=== PATIENT | female | born 2000 | race Caucasian/White ===

== ENCOUNTER 2019-09-20 23:08 | Emergency (ER) | payer OTHER, SELFPAY ==
[2019-09-20 23:19] VITALS: BP 136/89; PULSE 100; RESP 15; TEMP 36.8; O2SAT 99; BMI 26.5
--- NOTE | 2019-09-20 23:22 | ED_ITS ---
HPI - General Adult General Chief complaint: Urogenital-Female Stated complaint: severe UTI Time Seen by Provider: 09/20/19 23:20 Source: patient Mode of arrival: Ambulatory Limitations: no limitations History of Present Illness HPI narrative: 18-year-old female. Is in her 2nd trimester. This morning started having dysuria and burning and itching in frequency. No abdominal tenderness or loss of fluid or vaginal bleeding. States she threw up 1 time this morning after she took a AZO tablet. Went to her primary doctor today who apparently was going to put her on Keflex however for some reason that prescription to not get transmitted to the pharmacy. She comes this evening for continued symptoms. No back pain Related Data Previous Rx's Medication Instructions Recorded cephalexin [Keflex] 500 mg PO BID 7 Days #14 cap 09/20/19 Allergies Allergy/AdvReac Type Severity Reaction Status Date / Time nitrofurantoin Allergy Verified 09/20/19 23:19 [From [employer]] Review of Systems Constitutional Constitutional: Denies fever(s) Cardiovascular Cardiovascular: Denies chest pain and Denies dyspnea Respiratory Respiratory: Denies dyspnea Gastrointestinal Gastrointestinal: Denies abdominal pain and Reports vomiting (Once this morning) Genitourinary Genitourinary: Reports urinary frequency, Reports dysuria, Denies flank pain, Reports urinary urgency and Denies vaginal discharge Musculoskeletal Musculoskeletal: Denies myalgias and Denies arthralgias Hematologic/Lymphatic Hematologic/Lymphatic: Denies easy bleeding and Denies easy bruising Patient History Medical History Patient denies medical problems (Acute) Social History Smoking Status: Unknown if ever smoked alcohol intake frequency: holidays/special occasions only Substance Use Type: does not use Exam Initial Vital Signs Initial Vital Signs: Vital Signs Temperature 98.2 F 09/20/19 23:19 Pulse Rate 100 H 09/20/19 23:19 Respiratory Rate 15 09/20/19 23:19 Blood Pressure 136/89 09/20/19 23:19 Pulse Oximetry 99 09/20/19 23:19 Const General: cooperative, comfortable and well developed Orientation: alert and awake HENMT Head: normal to inspection and normocephalic Resp Effort & Inspection: normal respiratory effort GI Other: Gravid abdomen Back/Spine/Pelvis Back: No CVA tenderness Neuro General: alert and awake Extrem General: normal to inspection and capillary refill normal Course Orders Ordered: ED Orders 09/20/19 23:12 Urine Culture Stat Urine Microscopic Stat Discontinued Medications Cephalexin HCl (Keflex) 500 mg PO NOW ONE Stop: 09/20/19 23:35 Last Admin: 09/20/19 23:40 Dose: 500 mg Documented by: FROILAN Vital Signs Vital signs: Vital Signs - 8 hr 09/20/19 23:19 Temperature 98.2 F Pulse Rate 100 H Respiratory Rate 15 Blood Pressure 136/89 Pulse Oximetry 99 Medical Decision Making Lab Data Lab results reviewed: Yes I reviewed the patient's lab results. Labs: Lab Results 09/20/19 Range/Units 23:12 Urine RBC 5-10/hpf H (0-5/HPF) Urine WBC 30-100/hpf H (0-5/HPF) Ur Squamous Epith Cells 1-5 /hpf (0-5/HPF) Urine Bacteria Few (2-10) H (None) Ur Culture Indicated? Specimen cultured Urine Dip Bedside Urine Glucose Negative Bedside Urine Bilirubin - Negative Bedside Urine Ketone - Negative Urine Specific [place] 1.010 Bedside Urine Occult Blood ++ Bedside Urine pH 6.0 Bedside Urine Protein - Negative Bedside Urine Urobilinogen - Negative Bedside Urine Nitrite - Negative Bedside Urine Leukocytes +++ 500 Esterase Point of care testing: Urine Dip Bedside Urine Glucose Negative Bedside Urine Bilirubin - Negative Bedside Urine Ketone - Negative Urine Specific [place] 1.010 Bedside Urine Occult Blood ++ Bedside Urine pH 6.0 Bedside Urine Protein - Negative Bedside Urine Urobilinogen - Negative Bedside Urine Nitrite - Negative Bedside Urine Leukocytes +++ 500 Esterase MDM Narrative Medical decision making narrative: History and physical exam and labs consistent with a urinary tract infection. She has no vaginal bleeding or loss of fluid or abdominal cramping. Physical exam is also not consistent with pyelonephritis. She is allergic to Macrobid. Will send home with a prescription for Keflex. Was given 1 dose of Keflex here in the ER. She was given return precautions and follow-up instructions. She expressed understanding and agreement with plan. Discharge Plan Departure Patient Disposition: Home Clinical Impression: Urinary tract infection Qualifiers: Urinary tract infection type: acute cystitis Hematuria presence: with hematuria Qualified Code(s): N30.01 - Acute cystitis with hematuria Instructions: DI for Urinary Tract Infection (UTI) Activity Restrictions/Additional Instructions: Take the antibiotics as directed. Contact your primary provider on Monday and also your OB provider for follow-up. Return to the emergency department for any new or worsening symptoms Prescriptions: New cephalexin [Keflex] 500 mg capsule 500 mg PO BID 7 Days Qty: 14 RF: 0
[2019-09-20 23:36] LABS: RBC Urine 5-10/HPF (0-5/HPF); Squamous Epithelial Cell Urine 1-5 /HPF (0-5/HPF); WBC Urine 30-100/HPF (0-5/HPF)
[2019-09-20 23:37] LABS: Bacteria Urine Few (2-10); Culture Indicated Urine Specimen Cultured
[2019-09-20] MEDS: cephALEXin 250 MG CAPSULE 500 MG PO (23:40)
[2019-09-20] MEDS: ONDANSETRON 4 MG ODT PREPACK 1 BOTTLE MISC (23:59)
[2019-09-21 00:03] VITALS: BP 122/81; PULSE 98; RESP 15; O2SAT 100
== END 2019-09-21 00:04 | disposition home or self-care (01) ==
LOC: ED 23:46
PROVIDERS: Emergency Provider Emergency Medicine
DX: N30.01 Acute cystitis with hematuria (principal)
CPT/HCPCS: 81003; 81015; 87077; 87086; 87186; 99282; 99283

== ENCOUNTER 2019-10-23 18:38 | Outpatient (CLI) | payer OTHER, SELFPAY ==
--- NOTE | 2019-10-25 13:22 | P.TNLD_ITS ---
Visit Information Visit Information Date of evaluation: 10/23/19 On-call OB Provider: Svetlana Mejia Reason for Evaluation: Yes other Comments/Additional reasons for admission: Vaginal spotting Vital Signs Vital Signs: Blood pressure 119/76 pulse of 93 temperature 97.0? [facility] Social History Smoking Status: Unknown if ever smoked Review of Systems Review of Systems Narrative: Patient complaining of blood on her tissue when she wiped x2. Patient did have intercourse in the last 24 hours. She had some mild cramping. States she had her 20 week ultrasound it would be [facility] yesterday. No fevers. Good movement. ROS Unobtainable: All systems reviewed & are unremarkable except as noted in HPI and below Evaluation Evaluation Baseline heart rate: 150 Contraction Frequency (minutes): 0 Diagnosis, Plan/Disposition Final Diagnosis (1) Vaginal bleeding in : Current Visit: No Status: Acute (2) 21 weeks gestation of : Current Visit: No Status: Acute Plan/Disposition Plan: Patient with some bleeding likely after intercourse. We do not have records but she had her anatomy scan yesterday at [facility] so not repeated today. Patient is reassured and is to follow up with her OB provider. OB Disposition: home
== END 2019-10-23 19:17 | disposition home or self-care (01) ==
LOC: OB 10-24 12:52
PROVIDERS: Visit Provider Specialist
DX: O20.9 Hemorrhage in early pregnancy, unspecified (principal); Z3A.20 20 weeks gestation of pregnancy
CPT/HCPCS: 59025; G0378; G0379

== ENCOUNTER 2020-05-31 23:54 | Emergency (ER) | payer OTHER, SELFPAY ==
[2020-05-31 23:55] VITALS: BP 138/87; PULSE 88; RESP 16; TEMP 37; O2SAT 99; BMI 28.3
--- NOTE | 2020-05-31 23:56 | ED.GENADULT ---
HPI - General Adult General Chief complaint: Vaginal Bleeding Stated complaint: bleeding 16 days Time Seen by Provider: 05/31/20 23:56 Source: patient Mode of arrival: Ambulatory Limitations: no limitations History of Present Illness HPI narrative: Patient is a 19-year-old female. Three months from a vaginal delivery. Is not . Here for evaluation of 16 days of vaginal bleeding. She has seen her primary doctor. Approximately 2 days ago was started on Ortho Cyclen control pill. This was transition from an ortho Tri-Cyclen pill which she had been on for approximately a month before that. She also states that on Monday this week she started to develop urinary tract infection like symptoms with urinary frequency and urgency and burning. She did take a [id number] azo pill which he did states helped her symptoms somewhat. No vomiting. No fevers. She states that her vaginal bleeding seems to come in ?waves? she states she has some times where it is bleeding more than others. She stated that she was going to contact her business intelligence etl developer tomorrow morning however she contacted the nurse advice line who advised her to come to the emergency department for evaluation. Related Data Previous Rx's Medication Instructions Recorded cephalexin [Keflex] 500 mg PO BID 5 Days #10 cap 06/01/20 Allergies Allergy/AdvReac Type Severity Reaction Status Date / Time nitrofurantoin Allergy Verified 06/01/20 00:04 [From [facility]] Review of Systems Constitutional Constitutional: Denies fever(s) and Denies headache(s) ENT Ears, Nose, Mouth, and Throat: Denies headache(s) Cardiovascular Cardiovascular: Denies chest pain and Denies dyspnea Respiratory Respiratory: Denies dyspnea Gastrointestinal Gastrointestinal: Denies abdominal pain, Denies nausea and Denies vomiting Genitourinary Genitourinary: Reports dysuria, Reports dysuria, Reports urinary hesitancy and Reports urinary urgency Genitourinary: Denies difficulty voiding, Reports dysuria, Reports dysuria, Reports urinary hesitancy, Reports urinary urgency and Reports vaginal discharge Musculoskeletal Musculoskeletal: Denies arthralgias and Denies myalgias Integumentary/Breasts Skin/Breast: Denies rash Neurologic Neurologic: Denies behavioral changes and Denies headache(s) Psychiatric Psychiatric: Denies behavioral changes Hematologic/Lymphatic Hematologic/Lymphatic: Denies easy bleeding and Denies easy bruising Patient History Medical History Patient denies medical problems (Acute) Social History Smoking Status: Unknown if ever smoked Smoking Status: Unknown if ever smoked alcohol intake frequency: holidays/special occasions only Substance Use Type: does not use Exam Initial Vital Signs Initial Vital Signs: Vital Signs Temperature 98.6 F 05/31/20 23:55 Pulse Rate 88 05/31/20 23:55 Respiratory Rate 16 05/31/20 23:55 Blood Pressure 138/87 05/31/20 23:55 Pulse Oximetry 99 05/31/20 23:55 Const General: cooperative, comfortable, well developed and well groomed Limitations: mental status not altered HENMT Head: normal to inspection and normocephalic Resp Effort & Inspection: normal respiratory effort Cardio Rate: regular rate GI Inspection: non-distended Skin Lesions: no lesions Rashes: no rashes Neuro General: patient alert and patient awake Extrem General: normal to inspection Psych Appearance: grossly normal and well kempt Course Orders Ordered: ED Orders 06/01/20 00:13 Test Urine Stat Urinalysis and Microscopic Stat Urine Culture Stat 06/01/20 00:21 Complete Blood Count AUTO DIFF Stat Discontinued Medications Cephalexin HCl (Keflex) 500 mg PO NOW ONE Stop: 06/01/20 00:44 Last Admin: 06/01/20 00:58 Dose: 500 mg Documented by: YOMAIRA Vital Signs Vital signs: Vital Signs - 8 hr 05/31/20 23:55 Temperature 98.6 F Pulse Rate 88 Respiratory Rate 16 Blood Pressure 138/87 Pulse Oximetry 99 Medical Decision Making Lab Data Lab results reviewed: Yes I reviewed the patient's lab results. Result diagrams: 06/01/20 00:21 Labs: Lab Results 06/01/20 06/01/20 06/01/20 Range/Units 00: 00:13 00:21 WBC 6.9 (4.5-11.0) X10^3/uL RBC 4.76 (4.0-5.2) X10^6/uL Hgb 12.7 (12.0-16.0) g/dL Hct 39.4 (36-46) % MCV 82.7 (80-100) fL MCH 26.8 (26-34) PG MCHC 32.4 (30-36) % RDW 14.5 (11.6-14.8) % Plt Count 239 (150-400) X10^3/uL Neut % (Auto) 43.0 L (50-75) % Lymph % (Auto) 45.5 H (25-40) % Wilkinson % (Auto) 8.6 (3-14) % Eos % (Auto) 2.2 (2-4) % Baso % (Auto) 0.7 (0-2) % Neut # (Auto) 3000 (7352-8150) /uL Lymph # (Auto) 3200 (6911-6788) /uL Wilkinson # (Auto) 600 (0-900) /uL Eos # (Auto) 200 (0-450) /uL Baso # (Auto) 0 (0-100) /uL Urine Color Yellow Urine Appearance Sl cloudy Urine pH 6.0 (4.5-8.0) Ur Specific [place] 1.015 (1.000-1.035) Urine Protein 1+ H (Negative) Urine Glucose (UA) Negative (Negative) g/dL Urine Ketones Negative (NEGATIVE) Urine Occult Blood 3+ H (Negative) Urine Nitrate Positive H (Negative) Urine Bilirubin Negative (NEGATIVE) Urine Urobilinogen 0.2 (0.2) E.U./dL Ur Leukocyte Esterase 1+ H (NEGATIVE) Urine RBC 30-100/hpf H (0-5/HPF) Urine WBC 30-100/hpf H (0-5/HPF) Ur Squamous Epith Cells 1-5 /hpf (0-5/HPF) Urine Bacteria Many (>30) H (None) Ur Culture Indicated? Specimen cultured Urine Test Negative (Negative) MDM Narrative Medical decision making narrative: Patient's urinalysis is nitrite positive. Given her urinary symptoms I would suspect this is a urinary tract infection. She was given 1st dose of antibiotics here and a prescription transmitted to the pharmacy of her choice for the remainder. Patient's H&H is unremarkable. She is not anemic. Not tachycardic. Not hypotensive. She was just recently switched to a new control by her primary provider. Had a discussion with her regarding her symptoms. I feel that we can hold on an ultrasound or pelvic exam. I do suspect this is just dysfunctional uterine bleeding most likely secondary to her proximity to given . We did discuss potentially giving her a burst of her control to attempt to stop the bleeding or she could continue on the control as directed. She stated that she would rather just stay on the control in contact her business intelligence etl developer tomorrow. Patient was given return precautions and follow-up instructions. She expressed understanding and agreement. Discharge Plan Departure Patient Disposition: Home Clinical Impression: Abnormal vaginal bleeding Urinary tract infection Qualifiers: Urinary tract infection type: acute cystitis Hematuria presence: with hematuria Qualified Code(s): N30.01 - Acute cystitis with hematuria Discharge Date/Time: 06/01/20 01:16 Instructions: DI for Urinary Tract Infection (UTI), DI for Vaginal Bleeding Activity Restrictions/Additional Instructions: Take all antibiotics as directed. Continue with her control as directed. I do recommend you contact your business intelligence etl developer provider tomorrow for follow-up. Return to the emergency department for any new or worsening symptoms Prescriptions: New cephalexin [Keflex] 500 mg capsule 500 mg PO BID 5 Days Qty: 10 RF: 0
[2020-06-01 00:23] LABS: Pregnancy Test Urine Negative (Negative)
[2020-06-01 00:27] LABS: Appearance Urine UA SL CLOUDY; Bilirubin Urine UA NEGATIVE (NEGATIVE); Color Urine UA YELLOW; Glucose Urine UA NEGATIVE (Negative); Ketones Urine UA NEGATIVE (NEGATIVE); Leukocyte Esterase Urine UA 1+ (NEGATIVE); Nitrite Urine UA POSITIVE (Negative); Occult Blood Urine UA 3+ (Negative); Protein Urine UA 1+ (Negative); Specific Gravity Urine UA 1.015 (1.000-1.035); Urobilinogen Urine UA 0.2 E.U./dL (0.2)
[2020-06-01 00:31] LABS: Bacteria Urine Many (>30); RBC Urine 30-100/HPF (0-5/HPF); Squamous Epithelial Cell Urine 1-5 /HPF (0-5/HPF); WBC Urine 30-100/HPF (0-5/HPF)
[2020-06-01 00:32] LABS: Culture Indicated Urine Specimen Cultured
[2020-06-01 00:35] LABS: Add Manual Diff / Slide Review NO; Basophils Absolute Auto 0 /uL (0-100); Basophils Percent Auto 0.7 % (0-2); Eosinophils Absolute Auto 200 /uL (0-450); Eosinophils Percent Auto 2.2 % (2-4); Hematocrit 39.4 % (36-46); Hemoglobin 12.7 g/dL (12.0-16.0); Lymphocytes Absolute Auto 3200 /uL (1100-4500); Lymphocytes Percent Auto 45.5 % (25-40); Mean Corpuscular HGB Conc 32.4 % (30-36); Mean Corpuscular Hemoglobin 26.8 PG (26-34); Mean Corpuscular Volume 82.7 fL (80-100); Monocytes Absolute Auto 600 /uL (0-900); Monocytes Percent Auto 8.6 % (3-14); Neutrophils Absolute Auto 3000 /uL (1500-7000); Platelet Count 239 X10^3/uL (150-400); Red Blood Cell Count 4.76 X10^6/uL (4.0-5.2); Red Cell Distribution Width 14.5 % (11.6-14.8); White Blood Cell Count 6.9 X10^3/uL (4.5-11.0)
[2020-06-01] MEDS: cephALEXin 250 MG CAPSULE 500 MG PO (00:58)
[2020-06-01 01:15] VITALS: BP 111/58; PULSE 68; RESP 15; O2SAT 100
== END 2020-06-01 01:16 | disposition home or self-care (01) ==
PROVIDERS: Emergency Provider Emergency Medicine
DX: N93.9 Abnormal uterine and vaginal bleeding, unspecified (principal); N30.01 Acute cystitis with hematuria
CPT/HCPCS: 36415; 81001; 81025; 85025; 87077; 87086; 87186; 99283

== ENCOUNTER 2022-10-02 17:54 | Emergency (ER) | payer OTHER, SELFPAY ==
[2022-10-02 18:12] VITALS: BP 133/90; PULSE 79; RESP 18; TEMP 36.6; O2SAT 98; BMI 35.4
--- NOTE | 2022-10-02 19:06 | ED_ITS ---
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 As time progresses, her symptoms seem to get just worse, pain is located on a left side, base of her skull, exacerbated by neck turning. Patient describes no and viral illness, she was not exposed to ill contacts. Pt denies visual changes, photophobia, nausea, vomiting diarrhea. Currently elyse ent denies fever chills. She denies chronic neck pain, being in MVA or trauma to that region. She is concerned, as she also has some dizziness, and difficulty concentrating, which her spouse noted. Related Data Previous Rx's Medication Instructions Recorded methocarbamol 500 mg tablet 500 mg PO TID muscle spasm #30 tabs 10/02/22 Allergies Allergy/AdvReac Type Severity Reaction Status Date / Time nitrofurantoin Allergy Verified 06/01/20 00:04 [From [employer]] Review of Systems <Geraldine Cheney PA-C - Last Filed: 10/02/22 20:26> Review of Systems Narrative: Pertinent review of systems is otherwise normal unless stated in HPI Patient History <Geraldine Cheney PA-C - Last Filed: 10/02/22 20:26> Medical History (Updated 10/02/22 @ 19:40 by Geraldine Cheney PA-C) Patient denies medical problems Social History Smoking Status: Unknown if ever smoked Smoking Status: Unknown if ever smoked alcohol intake frequency: holidays/special occasions only Substance Use Type: does not use Exam <Geraldine Cheney PA-C - Last Filed: 10/02/22 20:26> Narrative Exam Narrative: GENERAL: 22year old patient appears stated age. Well-developed patient, in no acute distress, but admits she is a bit nervous not knowing what causng her discomfort. HEAD: Atraumatic. Normocephalic. EYES: Pupils equal round and reactive. Extraocular motions intact. No scleral icterus. No injection or drainage. FUndoscopic is NL [place] ENT: Nose without bleeding, purulent drainage. Throat without erythema, tonsillar hypertrophy or exudate. Airway patent. NECK: Trachea midline. There is a point tenderness on left longissimus capitis and oblique capitis inferior muscle , worse with cervical flexion and rotation, rest of cervical exam is Non tender CARDIOVASCULAR: Regular rate and rhythm without murmurs, gallops, or rubs. RESPIRATORY: Clear to auscultation. Breath sounds equal bilaterally. No wheezes, rales, or rhonchi. GASTROINTESTINAL: Abdomen soft, non-tender, nondistended. EXTREMITIES: No edema or joint tenderness. BACK: Nontender without deformity or crepitance. No flank tenderness. NEURO: AOx3.no focal deficits Pleasant and cooperative, normal goal directed thought process and speech SKIN: No rash or erythema of visible areas Initial Vital Signs Initial Vital Signs: Vital Signs Temperature 97.8 F 10/02/22 18:12 Pulse Rate 79 10/02/22 18:12 Respiratory Rate 18 10/02/22 18:12 Blood Pressure 133/90 10/02/22 18:12 Pulse Oximetry 98 10/02/22 18:12 Oxygen Delivery Method 10/02/22 18:12 <Bunny Rosas DO - Last Filed: 10/02/22 21:27> Initial Vital Signs Initial Vital Signs: Vital Signs Temperature 97.8 F 10/02/22 18:12 Pulse Rate 79 10/02/22 18:12 Respiratory Rate 18 10/02/22 18:12 Blood Pressure 133/90 10/02/22 18:12 Pulse Oximetry 98 10/02/22 18:12 Oxygen Delivery Method 10/02/22 18:12 Course <Geraldine Cheney PA-C - Last Filed: 10/02/22 20:26> Orders Ordered: ED Orders 10/02/22 19:23 XR cervical spine 2V or 3V Stat 10/02/22 19:24 XR sinus min 3V Stat Vital Signs Vital signs: Vital Signs - 8 hr 10/02/22 18:12 Temperature 97.8 F Pulse Rate 79 Respiratory Rate 18 Blood Pressure 133/90 Pulse Oximetry 98 Oxygen Delivery Method Room Air <Bunny Rosas DO - Last Filed: 10/02/22 21:27> Orders Ordered: ED Orders 10/02/22 19:23 XR cervical spine 2V or 3V Stat 10/02/22 19:24 XR sinus min 3V Stat Vital Signs Vital signs: Vital Signs - 8 hr 10/02/22 18:12 Temperature 97.8 F Pulse Rate 79 Respiratory Rate 18 Blood Pressure 133/90 Pulse Oximetry 98 Oxygen Delivery Method Room Air MDM - Headache <CARRIE Culp-Ailyn - Last Filed: 10/02/22 20:26> Imaging Data c spine : My Impression: reviewed with dr Rosas no obvious abnormality MDM Narrative Medical decision making narrative: Patient is alert and oriented AOx3, feels better, but she displays signs and symptoms of acute cervical muscle spasm Discussed with patient diagnosis and treatment : heat, massage, NSAIDS and muscle relaxants, and self guided PT Xrays were reviewed and unremarkable Patient had her questions answered to her apparent satisfaction and are instructed to return to the emergency department for any worsening, persistent, or worrisome problems. She was instructed to take medications as directed. She also was instructed to call their doctor's office [facility] to schedule an appointment in the next 1-2 days. Discharge Plan Departure Patient Disposition: Home Clinical Impression: Cervical muscle pain Instructions: DI for Muscle Spasm Activity Restrictions/Additional Instructions: Patient is diagnosed with cervical muscle spasm. Advised to treat conservatively with heat, stretching, NSAIDS, muscle relaxants There is no evidence of an emergent or life threatening illness at this time, but follow up with your doctor in 1-2 days is recommended. Please call the office for an appointment. Please return to the Emergency Department for any worsening or persistent symptoms. Please take medications as directed. Prescriptions: New methocarbamol 500 mg tablet 500 mg PO TID Qty: 30 0RF Referrals: Charline Tinoco ARNP [Primary Care Provider] - Visit Report Forms: Patient Portal/API <Bunny Rosas DO - Last Filed: 10/02/22 21:27> Cosign ED Attending Cosignature Attestation: Dr Rosas Co-Sign Statement: I was available for consultation during this patient's emergency department visit. This chart is signed by myself for administrative purposes only. I did not have direct contact with this patient during this visit. They were seen independently by the APC.
--- NOTE | 2022-10-02 19:23 | DI.RAD.S_ITS ---
PROCEDURE: XR CERVICAL SPINE 2V OR 3V INDICATIONS: cervical pain TECHNIQUE: 3 views of the cervical spine were acquired. COMPARISON: None. FINDINGS: Bones: No fractures or subluxation to the C7 level. The lateral masses of C1 appear intact on the odontoid view. There is mild straightening of the cervical lordosis. No suspicious bony lesions. Soft tissues: No prevertebral soft tissue swelling. IMPRESSION: 1. No fracture or subluxation. Dictated by: Maynor Mancilla M.D. on 10/02/2022 at 20:21 Approved by: Maynor Mancilla M.D. on 10/02/2022 at 20:22
--- NOTE | 2022-10-02 19:24 | DI.RAD.S_ITS ---
PROCEDURE: XR SINUS MIN 3V INDICATIONS: headache pressure TECHNIQUE: 3 views of the sinuses were acquired. COMPARISON: None. FINDINGS: Sinuses: The visualized sinuses demonstrate no air-fluid levels or mucoperiosteal thickening. The visualized mastoids also appear clear. Bones: There is an oval sclerotic lesion measuring approximately 3.2 cm projecting over the right frontal bone. Nasal septum is midline. IMPRESSION: 1. No sinus air-fluid levels or mucoperiosteal thickening to suggest acute sinusitis. 2. Oval sclerotic region projecting over the right frontal bone. The finding is nonspecific and may represent hyperostosis frontalis but a calcified mass lesion cannot be excluded. Further evaluation may be obtained with CT. Dictated by: Maynor Mancilla M.D. on 10/02/2022 at 20:22 Approved by: Maynor Mancilla M.D. on 10/02/2022 at 20:25
== END 2022-10-02 20:35 | disposition home or self-care (01) ==
PROVIDERS: Emergency Provider Physician Assistant Medical; PCP Nurse Practitioner Family
DX: M54.2 Cervicalgia (principal); R51.9 Headache, unspecified
CPT/HCPCS: 70220; 72040; 99281; 99283

== ENCOUNTER 2022-11-24 11:33 | Emergency (ER) | payer OTHER, SELFPAY ==
[2022-11-24 11:44] VITALS: BP 124/76; PULSE 88; RESP 15; TEMP 36.5; O2SAT 98; BMI 34.5
--- NOTE | 2022-11-24 11:59 | DI.US.S_ITS ---
PROCEDURE: US ABDOMEN LIMITED INDICATIONS: EPIGASTRIC PAIN; N/V TECHNIQUE: Real-time focused scanning was performed of the abdomen, with image documentation. COMPARISON: None. FINDINGS: Liver is normal in size measuring 12.7 cm. There is a non mobile focus within the gallbladder lumen at the level of the gallbladder neck measuring 4 mm. Wall thickness is normal measuring 1.5 mm. No pericholecystic fluid. Common bile duct measures 3.3 mm. Visualized portion of the pancreas are unremarkable. IMPRESSION: Non mobile focus of increased echogenicity within the gallbladder most suggestive of stone. No evidence of cholecystitis. Dictated by: Jennifer Aguilar M.D. on 11/24/2022 at 14:26 Approved by: Jennifer Aguilar M.D. on 11/24/2022 at 14:26
[2022-11-24 12:05] LABS: Add Manual Diff / Slide Review NO; Basophils Absolute Auto 100 /uL (0-100); Basophils Percent Auto 0.7 % (0-2); Eosinophils Absolute Auto 0 /uL (0-450); Eosinophils Percent Auto 0.1 % (2-4); Hematocrit 47.5 % (36-46); Hemoglobin 15.8 g/dL (12.0-16.0); Lymphocytes Absolute Auto 2000 /uL (1100-4500); Lymphocytes Percent Auto 21.4 % (25-40); Mean Corpuscular HGB Conc 33.3 % (30-36); Mean Corpuscular Hemoglobin 29.1 PG (26-34); Mean Corpuscular Volume 87.4 fL (80-100); Monocytes Absolute Auto 500 /uL (0-900); Monocytes Percent Auto 5.7 % (3-14); Neutrophils Absolute Auto 6700 /uL (1500-7000); Neutrophils Percent Auto 72.1 % (50-75); Platelet Count 250 X10^3/uL (150-400); Red Blood Cell Count 5.43 X10^6/uL (4.0-5.2); Red Cell Distribution Width 14.3 % (11.6-14.8); White Blood Cell Count 9.3 X10^3/uL (4.5-11.0)
[2022-11-24 12:20] LABS: Alanine Aminotransferase 38 IU/L (<35); Albumin 4.7 g/dL (3.5-5.0); Albumin Globulin Ratio 1.2 (1.0-2.8); Alkaline Phosphatase 78 U/L (38-126); Aspartate Aminotransferase 32 IU/L (14-36); BUN Creatinine Ratio 10.3 (6-22); Bilirubin Total 0.7 mg/dL (0.2-1.3); Blood Urea Nitrogen 6 mg/dL (7-17); Calcium 9.5 mg/dL (8.4-10.2); Carbon Dioxide 24 mmol/L (22-32); Chloride 103 mmol/L (98-107); Estimated Glomerular Filt Rate > 60 mL/min (>60); Globulin 3.8 g/dL (1.7-4.1); Glucose 116 mg/dL (70-100); HEMOLYSIS 17 (0-50); Lipase 81 U/L (23-300); Potassium 3.7 mmol/L (3.4-5.1); Sodium 140 mmol/L (137-145); Total Protein 8.5 g/dL (6.3-8.2)
[2022-11-24 12:45] LABS: Amorphous Sediment Urine 1+; Bacteria Urine Moderate (10-30); Culture Indicated Urine Specimen Cultured; RBC Urine 5-10/HPF (0-5/HPF); Squamous Epithelial Cell Urine 10-30 /HPF (0-5/HPF); WBC Urine 5-10/HPF (0-5/HPF)
--- NOTE | 2022-11-24 14:46 | ED_ITS ---
HPI - Abdominal Pain General Chief Complaint: Abdominal Pain Stated Complaint: dehydrated, gallbladder issues Time Seen by Provider: 11/24/22 11:58 Source: patient Mode of arrival: Ambulatory History of Present Illness HPI narrative: 22F nonsmoker with noncontributory medical history presents at the request of her primary care provider for evaluation of frequent nausea and vomiting and abdominal pain or least the past few days. She denies any fever chills and she is not jaundice. She is not dizzy nor weak or lightheaded. She is able to keep liquids down but often times solids seems to increase her symptoms. She was sent here for evaluation of possible dehydration and for likely ultrasound of her gallbladder. Related Data Previous Rx's Medication Instructions Recorded methocarbamol 500 mg tablet 500 mg PO TID muscle spasm #30 tabs 10/02/22 ondansetron 4 mg disintegrating 4 mg PO TID-QID PRN nausea and 11/24/22 tablet vomiting #10 tabs pantoprazole 40 mg tablet,delayed 40 mg PO DAILY #30 tabs 11/24/22 release (Protonix) Allergies Allergy/AdvReac Type Severity Reaction Status Date / Time nitrofurantoin Allergy Verified 11/24/22 11:44 [From Macrobid] Review of Systems Review of Systems Narrative: GENERAL: See HPI HEENT: Denies sinus pain, ear pain, sore throat, difficulty swallowing, dizziness. RESPIRATORY: Denies dyspnea, cough, wheezing, hemoptysis, sputum. CARDIOVASCULAR: Denies chest pain, palpitations, orthopnea, edema, GASTROINTESTINAL: See HPI : Denies dysuria, frequency, incontinence, hematuria, urinary retention. MUSCULOSKELETAL: denies weakness, joint pain, or bony pain SKIN: Denies rash, skin lesions, or other NEUROLOGIC: Denies weakness, headache, numbness, change in speech, confusion, seizures, incoordination. PSYCHIATRIC: No concerning psychosocial issues. 12 point review of systems is negative except for those stated above Patient History Medical History (Updated 11/24/22 @ 16:31 by Malachi Leon DO) Patient denies medical problems Social History Smoking Status: Unknown if ever smoked Smoking Status: Unknown if ever smoked alcohol intake frequency: holidays/special occasions only Substance Use Type: does not use Exam Narrative Exam Narrative: GENERAL: [22] year old patient appears stated age. Well-developed patient, in mild distress. HEAD: Atraumatic. Normocephalic. EYES: Pupils equal round and reactive. Extraocular motions intact. No scleral icterus. No injection or drainage. ENT: Moist mucous membranes Nose without bleeding, purulent drainage. Throat without erythema, tonsillar hypertrophy or exudate. Airway patent. NECK: Trachea midline. Non tender CARDIOVASCULAR: Regular rate and rhythm without murmurs, gallops, or rubs. RESPIRATORY: Clear to auscultation. Breath sounds equal bilaterally. No wheezes, rales, or rhonchi. GASTROINTESTINAL: Abdomen soft, non-tender, nondistended. EXTREMITIES: No edema or joint tenderness. BACK: Nontender without deformity or crepitance. No flank tenderness. NEURO: AOx3. SKIN: No rash or erythema of visible areas Initial Vital Signs Initial Vital Signs: Vital Signs Temperature 97.7 F 11/24/22 11:44 Pulse Rate 88 11/24/22 11:44 Respiratory Rate 15 11/24/22 11:44 Blood Pressure 124/76 11/24/22 11:44 Pulse Oximetry 98 11/24/22 11:44 Oxygen Delivery Method 11/24/22 11:44 Course Orders Ordered: Discontinued Medications Ondansetron HCl (Ondansetron 4 Mg/2 Ml Inj) 4 mg IV NOW PRN PRN Reason: Nausea And Vomiting Vital Signs Vital signs: Vital Signs - 8 hr 11/24/22 11:44 11/24/22 16:00 Temperature 97.7 F Pulse Rate 88 85 Respiratory Rate 15 Blood Pressure 124/76 115/80 Pulse Oximetry 98 97 Oxygen Delivery Method Room Air Room Air MDM - Abdominal Pain Lab Data Attestation: I reviewed the patient's lab results. Result diagrams: 11/24/22 11:55 11/24/22 11:55 Labs: Lab Results 11/24/22 11/24/22 11/24/22 Range/Units 11:55 11:55 12:07 WBC 9.3 (4.5-11.0) X10^3/uL RBC 5.43 H (4.0-5.2) X10^6/uL Hgb 15.8 (12.0-16.0) g/dL Hct 47.5 H (36-46) % MCV 87.4 (80-100) fL MCH 29.1 (26-34) PG MCHC 33.3 (30-36) % RDW 14.3 (11.6-14.8) % Plt Count 250 (150-400) X10^3/uL Neut % (Auto) 72.1 (50-75) % Lymph % (Auto) 21.4 L (25-40) % Boyd % (Auto) 5.7 (3-14) % Eos % (Auto) 0.1 L (2-4) % Baso % (Auto) 0.7 (0-2) % Neut # (Auto) 6700 (8001-1938) /uL Lymph # (Auto) 2000 (6985-2222) /uL Boyd # (Auto) 500 (0-900) /uL Eos # (Auto) 0 (0-450) /uL Baso # (Auto) 100 (0-100) /uL Sodium 140 (137-145) mmol/L Potassium 3.7 (3.4-5.1) mmol/L Chloride 103 (98-107) mmol/L Carbon Dioxide 24 (22-32) mmol/L BUN 6 L (7-17) mg/dL Creatinine 0.58 (0.52-1.04) mg/dL Estimated GFR > 60 (>60) mL/min BUN/Creatinine Ratio 10.3 (6-22) Glucose 116 H (70-100) mg/dL Calcium 9.5 (8.4-10.2) mg/dL Total Bilirubin 0.7 (0.2-1.3) mg/dL AST 32 (14-36) IU/L ALT 38 H (<35) IU/L Alkaline Phosphatase 78 (38-126) U/L Total Protein 8.5 H (6.3-8.2) g/dL Albumin 4.7 (3.5-5.0) g/dL Globulin 3.8 (1.7-4.1) g/dL Albumin/Globulin Ratio 1.2 (1.0-2.8) Lipase 81 (23-300) U/L Urine RBC 5-10/hpf H (0-5/HPF) Urine WBC 5-10/hpf H (0-5/HPF) Ur Squamous Epith Cells 10-30 /hpf H D (0-5/HPF) Amorphous Sediment 1+ Urine Bacteria Moderate (10-30) H (None) Ur Culture Indicated? Specimen cultured Point of care testing: Point of Care Testing Test Results Negative Urine Dip Bedside Urine Glucose Negative Bedside Urine Bilirubin - Negative Bedside Urine Ketone - Negative Urine Specific [place] 1.005 Bedside Urine Occult Blood + Bedside Urine pH 7.5 Bedside Urine Protein - Negative Bedside Urine Urobilinogen - Negative Bedside Urine Nitrite - Negative Imaging Data US - abdomen: Radiologist's Impression: Laury Sawyer??22??F??2000 ? Allergy/Adv: nitrofurantoin Close Abdomen Ultrasound (Signed) Jennifer Aguilar - 11/24/22 Sinuses X-Ray (Signed) Maynor Mancilla - 10/02/22 Cervical Spine X-Ray (Signed) Maynor Mancilla - 10/02/22 [place] [address] Ultrasound Report Signed Patient: Laury Sawyer MR#: [id number] : 2000 Acct:[id number] Age/Sex: 22 / F Date of Service: 11/24/22 Loc: ED Accession Number: [id number] ?? Procedure: US abdomen limited Ordering Provider: Malachi Leon D.O. PROCEDURE: US ABDOMEN LIMITED ? INDICATIONS:? EPIGASTRIC PAIN; N/V ? TECHNIQUE:? Real-time focused scanning was performed of the abdomen, with image documentation.? ? COMPARISON:? None. ? FINDINGS:? Liver is normal in size measuring 12.7 cm.? There is a non mobile focus within the gallbladder lumen at the level of the gallbladder neck measuring 4 mm.? Wall thickness is normal measuring 1.5 mm.? No pericholecystic fluid.? Common bile duct measures 3.3 mm.? Visualized portion of the pancreas are unremarkable. ? IMPRESSION:? ? Non mobile focus of increased echogenicity within the gallbladder most suggesti ve of stone.? No evidence of cholecystitis.? ? ? Dictated by: Jennifer Aguilar M.D. on 11/24/2022 at 14:26 ? ? Approved by: Jennifer Aguilar M.D. on 11/24/2022 at 14:26 ? MDM Narrative Medical decision making narrative: [22-year-old previously healthy female presents with nausea and vomiting and abdominal pain] Multiple etiologies for patient's symptoms considered including, but not limited to: Gallbladder disease, pancreatitis, dehydration versus other [] Labs reviewed and interpreted by myself: No elevated bilirubin or LFTs nor alk phos to suggest an obstructive process, lipase is normal. No indications of dehydration, normal electrolytes, renal function and specific gravity urine. Imaging reviewed: No evidence of obstructive process Consultations: discussed with records and information manager general surgery Patient's symptoms improved over duration of stay with above-stated therapies. Patient with minimal pain, tolerating orals without difficulty Findings and discharge diagnosis discussed with patient/family followed by verbalization of understanding Return precautions discussed with patient/family whom verbalize understanding of diagnosis and plan Discharge Plan Departure Patient Disposition: Home Clinical Impression: Vomiting, Gallstones Instructions: DI for Abdominal Pain-Adult, DI for Vomiting -- Adult Activity Restrictions/Additional Instructions: *You have been diagnosed with [abdominal pain likely due to gallstones] * As we discussed your history and physical exam as well as labs and imaging are very reassuring. There is no evidence of any severe diagnoses that would require a specific or immediate intervention. *What to do: *Please continue to take your regular medications as directed. [x ] New medication prescriptions sent to your pharmacy: [ DOD] *Please follow up with your primary care provider in 2-3 days, call for an appointment. Let them know you were seen in the Emergency Department and that we ask that you be seen in follow up. We will electronically transmit a record of today's note if your PCP is in our system *Please consider a clear liquid diet for the next 24-48 hours and then slowly advance to regular as tolerated. Also, try to avoid alcohol, nicotine, caffeine, spicy, acidic or fatty foods as this may worsen your symptoms *If you do not have a primary care provider please contact the [facility] Resource line at [phone]. They will ask some questions about your medical history and help get you set up with a doctor in the community. *Return to Emergency Department if you should have any new, worsening or concerning symptoms, such as [fever greater than 101 F, shaking chills, worsening pain, persistent vomiting or other bothersome symptoms] Prescriptions: New ondansetron 4 mg tablet,disintegrating 4 mg PO TID-QID PRN (Reason: nausea and vomiting) Qty: 10 0RF pantoprazole [Protonix] 40 mg tablet,delayed release (DR/EC) 40 mg PO DAILY Qty: 30 0RF No Action methocarbamol 500 mg tablet 500 mg PO TID Qty: 30 0RF Referrals: Charline Tinoco ARNP [Primary Care Provider] - Eh Medina MD [Physician] - Stand Alone Forms: Patient Portal/API
[2022-11-24 16:00] VITALS: BP 115/80; PULSE 85; O2SAT 97
== END 2022-11-24 16:50 | disposition home or self-care (01) ==
PROVIDERS: Emergency Provider Emergency Medicine; PCP Nurse Practitioner Family
DX: K80.20 Calculus of gallbladder without cholecystitis without obstruction (principal); R11.2 Nausea with vomiting, unspecified; R10.13 Epigastric pain
CPT/HCPCS: 36415; 76705; 80053; 81003; 81015; 81025; 83690; 85025; 87086; 99283; 99284